=== PATIENT | male | born 1930 | race Caucasian/White ===

== ENCOUNTER 2018-08-22 13:19 | Emergency (ER) | payer OTHER ==
--- OUTSIDE RECORDS SUMMARY | 2018-08-22 13:22 | XMS REPORT | Clinical Summary ---
:[address] [facility] Address [address] [place] [address] Care Team Providers Name Role Phone Yulissa Primary Care Provider Allergies No Known Allergies Medications Not on file Active Problems Not on file Social History Tobacco Use Types Packs/Day Years Used Date Never Assessed Sex Assigned at Date Recorded Not on file Job Start Date Occupation Industry Not on file Not on file Not on file Travel History Travel Start Travel End No recent travel history available. Last Filed Vital Signs Not on file Plan of Treatment Not on file Results Not on fileafter 08/21/2017 Insurance Payer Benefit Plan / Subscriber ID Type Phone Address Group [employer] - MEDICARE AETNA MEDICARE O xxxxxxxx [phone] [address] [place] [id number]
--- OUTSIDE RECORDS SUMMARY | 2018-08-22 13:22 | XMS REPORT ---
:1930 Author Organization [facility] Address [address] [place] [address] Dr. Holguin [address] [place] [id number] Care Team Providers Name Role Phone SAMANTHA WILKS Unavailable Unavailable Problems This patient has no known problems. Allergies, Adverse Reactions, Alerts This patient has no known allergies or adverse reactions. Medications This patient has no known medications. Results Test Description Test Time Test Comments Text Results Atomic Results Result Comments COMPREHENSIVE METABOLIC PANEL 2017-03-16 13:12:00 Test Item Value Reference Range Comments TOTAL PROTEIN (BEAKER) (test 7.0 gm/dL 6.0-8.3 Specimen moderately hemolyzed rhwx=228) ALBUMIN (BEAKER) (test 4.0 g/dL 3.5-5.0 Specimen moderately hemolyzed mwfs=6972) ALKALINE PHOSPHATASE 54 U/L 40-150 (BEAKER) (test blon=029) BILIRUBIN TOTAL (BEAKER) 0.6 mg/dL 0.2-1.2 Specimen moderately hemolyzed (test voqq=133) SODIUM (BEAKER) (test 142 meq/L 136-145 zzzj=928) POTASSIUM (BEAKER) (test 4.5 meq/L 3.5-5.1 Specimen moderately hemolyzed uoab=553) CHLORIDE (BEAKER) (test 108 meq/L 98-107 gxlp=260) CO2 (BEAKER) (test fsvt=034) 27 meq/L 22-29 BLOOD UREA NITROGEN (BEAKER) 24 mg/dL 7-21 (test ilge=021) CREATININE (BEAKER) (test 0.98 mg/dL 0.57-1.25 Specimen moderately hemolyzed vdxe=740) GLUCOSE RANDOM (BEAKER) 86 mg/dL 70-105 (test tdwd=387) CALCIUM (BEAKER) (test 8.9 mg/dL 8.4-10.2 kxxb=572) AST (SGOT) (BEAKER) (test 23 U/L 5-34 Specimen moderately hemolyzed kgwx=454) ALT (SGPT) (BEAKER) (test 12 U/L 6-55 Specimen moderately ager=849) hemolyzed EGFR (BEAKER) (test mL/min/1.73 sq m INSUFFICIENT CLINICAL DATA TO fudi=7336) CALCULATE ESTIMATED GFR. B-TYPE NATRIURETIC FACTOR (BNP)2017-03-16 12:39:00 Test Item Value Reference Range Comments B-TYPE NATRIURETIC PEPTIDE (BEAKER) (test 476 pg/mL 0-100 mrzn=261) TROPONIN [id number] 12:39:00 Test Item Value Reference Range Comments TROPONIN I (BEAKER) (test vdls=817) 0.02 ng/mL 0.00-0.03 Troponin I (TnI) levels must be interpreted in the context of the presenting symptoms and the clinical findings. Elevated TnI levels indicate myocardial damage, but are not specific for ischemic heart disease. Elevated TnI levels are seen in patients with other cardiac conditions (including myocarditis and congestive heart failure), and slight TnI elevations occur in patients with other conditions, including sepsis, renal failure, acidosis, acute neurological disease, and persistent tachyarrhythmia.[id number] 12:29:00 Test Item Value Reference Range Comments MAGNESIUM (BEAKER) (test 2.4 mg/dL 1.6-2.6 Specimen moderately hemolyzed dsjv=777) RAD, CHEST, 1 VIEW, NON [id number] 12:23:00Reason for exam:->chest painShould this be performed at the bedside?->YesFINAL REPORT INDICATION: chest pain COMPARISON: None. TECHNIQUE: Chest radiograph, single view, portable technique. FINDINGS / IMPRESSION: No consolidation, pulmonary edema, or pleural effusion is demonstrated. Curvilinear lucencies of both hemithoraces represent skin folds. No pneumothorax. Moderate enlargement of the heart shadow and coarse calcification of the aortic arch noted. Osseous structures unremarkable. Signed: Tati Saez MDReport Verified Date/Time: 03/16/2017 12:23:55 Reading Location: [address] Consult Reading Room PT /[id number] 12:18:00 Test Item Value Reference Range Comments PROTIME (BEAKER) (test wgbx=580) 14.0 seconds 11.7-14.7 INR (BEAKER) (test kazj=473) 1.1 <=5.9 PARTIAL THROMBOPLASTIN TIME (BEAKER) (test 32.5 seconds 22.5-36.0 pisu=197) RECOMMENDED COUMADIN/WARFARIN INR THERAPY RANGESSTANDARD DOSE: 2.0 - 3.0 Includes: PROPHYLAXIS forvenous thrombosis, systemic embolization; TREATMENT for venous thrombosis and/or pulmonary embolus.HIGH RISK: Target INR is 2.5-3.5 for patients with mechanical heart valves.CBC W/PLT COUNT & AUTO [id number] 12:05:00 Test Item Value Reference Range Comments WHITE BLOOD CELL COUNT (BEAKER) (test qfyd=035) 4.6 K/ L 3.5-10.5 RED BLOOD CELL COUNT (BEAKER) (test odck=442) 3.32 M/ L 4.63-6.08 HEMOGLOBIN (BEAKER) (test vfkc=173) 10.6 GM/DL 13.7-17.5 HEMATOCRIT (BEAKER) (test ravu=183) 33.1 % 40.1-51.0 MEAN CORPUSCULAR VOLUME (BEAKER) (test skno=486) 99.7 fL 79.0-92.2 MEAN CORPUSCULAR HEMOGLOBIN (BEAKER) (test 31.9 pg 25.7-32.2 oylp=677) MEAN CORPUSCULAR HEMOGLOBIN CONC (BEAKER) (test 32.0 GM/DL 32.3-36.5 pfor=965) RED CELL DISTRIBUTION WIDTH (BEAKER) (test 11.9 % 11.6-14.4 ozsl=846) PLATELET COUNT (BEAKER) (test dbpe=143) 200 K/CU MM 150-450 MEAN PLATELET VOLUME (BEAKER) (test eduq=603) 9.6 fL 9.4-12.4 NUCLEATED RED BLOOD CELLS (BEAKER) (test 0 /100 WBC 0-0 kjru=465) NEUTROPHILS RELATIVE PERCENT (BEAKER) (test 61 % uasq=526) LYMPHOCYTES RELATIVE PERCENT (BEAKER) (test 26 % vkeu=549) MONOCYTES RELATIVE PERCENT (BEAKER) (test 9 % rgye=535) EOSINOPHILS RELATIVE PERCENT (BEAKER) (test 4 % gcmf=772) BASOPHILS RELATIVE PERCENT (BEAKER) (test 0 % dmfw=008) NEUTROPHILS ABSOLUTE COUNT (BEAKER) (test 2.78 K/ L 1.78-5.38 fiyf=548) LYMPHOCYTES ABSOLUTE COUNT (BEAKER) (test 1.21 K/ L 1.32-3.57 yoyo=067) MONOCYTES ABSOLUTE COUNT (BEAKER) (test 0.41 K/ L 0.30-0.82 fdxj=491) EOSINOPHILS ABSOLUTE COUNT (BEAKER) (test 0.17 K/ L 0.04-0.54 cpbl=241) BASOPHILS ABSOLUTE COUNT (BEAKER) (test 0.02 K/ L 0.01-0.08 tmco=139) IMMATURE GRANULOCYTES-RELATIVE PERCENT (BEAKER) 0 % 0-1 (test pohw=0722) CT, BRAIN, WITHOUT [id number] 11:37:00Reason for exam:-> HYPERTENSIONWhat is the patient's sedation requirement?->No SedationFINAL REPORT CT head without contrast. Comparisons: No Reason for exam: HYPERTENSIONHA with HTN. Discussion: Multiple axial CT images of the head are provided without contrast evaluated in brain and bone windows. Dose modulation, iterative reconstruction, and/or weight based adjustment of the mA/kV was utilized to reduce the radiation dose to as low as reasonably achievable. There is no CT evidence of intracranial hemorrhage, mass -effect, hydrocephalus, shift, or extra-axial collections. 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 The visualized dural sinus regions, orbital contents, paranasal sinuses, bones and surrounding soft tissues are unremarkable. Impressions: 1. No specific evidence of acute intracranial abnormality. Signed: Nelly Solorio Verified Date/Time: 11:37:58 Reading Location: [address] Reading Room
--- NOTE | 2018-08-22 13:50 | RAD REPORT ---
EXAM DESCRIPTION: CT - Head Brain Wo Cont - 08/22/2018 1:41 pm CLINICAL HISTORY: syncope;Syncope Headache, drowsiness, syncope COMPARISON: HEAD BRAIN W O CONTRAST dated 11/11/2006 TECHNIQUE: All CT scans are performed using dose optimization technique as appropriate and may inclu de automated exposure control or mA/KV adjustment according to patient size. FINDINGS: No intracranial hemorrhage, hydrocephalus or extra-axial fluid collection.Mild generalized brain atrophy is noted.No areas of brain edema or evidence of midline shift. The paranasal sinuses and mastoids are clear. The calvarium is intact. IMPRESSION: No acute intracranial abnormality.
--- NOTE | 2018-08-22 15:01 | EKG ---
Test Date: 2018-08-22 Test Time: 13:31:48 Flower Arranger: CHARLEEN MEASUREMENT RESULTS: Intervals: Rate: 51 MS: 264 QRSD: 98 QT: 466 QTc: 429 [place]: P: 77 MS: 264 QRS: -23 T: 47 INTERPRETIVE STATEMENTS: Sinus bradycardia with marked sinus arrhythmia with 1st degree AV block with occasional premature ventricular complexes Otherwise normal ECG Compared to ECG 12/28/2014 06:52:20 Ventricular premature complex(es) now present Atrial premature complex(es) no longer present Left-axis deviation no longer present ST (T wave) deviation no longer present Electronically Signed On 08-22-18 15:00:24 CDT by Ryan Rsut
[2018-08-22 15:16] LABS: Absolute Lymphocytes (CBC) 0.6 K/uL (0.7-4.9); Basophils % 0.2 % (0-1.3); Eosinophils % 0.7 % (0-4.4); Hematocrit 31.5 % (39.6-49.0); Lymphocytes % 8.3 % (15.3-44.8); MPV 8.2 fL (7.6-11.3); RBC Red Blood Cell Count 3.26 M/uL (4.33-5.43)
[2018-08-22 15:37] LABS: BUN Blood Urea Nitrogen 44 mg/dL (7-18); Bicarbonate 29 mmol/L (21-32); CKMB Creatine Kinase MB 1.1 ng/mL (0.3-3.6); Creatine Phosphokinase 77 U/L (39-308); Glucose Level 102 mg/dL (74-106); Magnesium 2.9 mg/dL (1.8-2.4); Potassium 3.7 mmol/L (3.5-5.1); Sodium Level 144 mmol/L (136-145); Troponin (Emerg Dept Use Only) < 0.02 ng/mL (0.0-0.045)
--- NOTE | 2018-08-22 16:58 | RAD REPORT ---
EXAM DESCRIPTION: CT - Abdomen Pelvis Wo Contrast - 08/22/2018 4:25 pm CLINICAL HISTORY: Low back pain, abdomen pain, syncope with fall COMPARISON: None. TECHNIQUE: Axial [address] imaging of the abdomen and pelvis was performed without IV contrast. No IV contrast was given because of allergy, abnormal renal function, patient refusal or physician re quest. Oral contrast was given. All CT scans are performed using dose optimization technique as appropriate and may include automated exposure control or mA/KV adjustment according to patient size. FINDINGS: No suspicious findings in the lung bases. No pericardial thickening or effusion. Liver size is normal. No focal liver lesions seen on noncontrast imaging. No splenic abnormality. Hassan creas is relatively atrophic. There are numerous calcifications throughout the pancreatic parenchyma presumed to be from prior infectious/ inflammatory process. Gallbladder is well filled but no wall th ickening or pericholecystic fluid. Gallstones can be occult on CT imaging. No hydronephrosis or suspicious renal mass. No significant adrenal finding. Isodense renal masses an d pyelonephritis cannot be excluded in the absence of IV contrast. The urinary bladder is without sig nificant finding. No gastric dilatation or wall thickening. No small bowel abnormality. Large amount of stool is presen t filling but not dilating the entire course of the colon. No focal, acute colon process identified. No free air, free fluid or inflammatory stranding. No mass or bulky lymphadenopathy. Small fat only r ight inguinal hernia. Dense arterial tree calcifications are present. Lower thoracic and lumbar degenerative changes are pr esent. No compression fracture or acute bone process seen. IMPRESSION: Large stool volume filling but not dilating the entire course of the colon. No acute foc al colon process seen. Gallbladder is distended but not dilated. No CT findings for an acute gallbladder process. Stones can be occult. Numerous pancreatic calcifications probably from remote pancreatitis. No active pancreatic process. Prominent bony degenerative change. No acute bone process seen. Full assessment is limited is the absence of IV contrast.
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
[2018-08-22 17:06] LABS: Urine Blood NEGATIVE (NEG); Urine Glucose NEGATIVE (NEG); Urine Protein NEGATIVE (NEG); Urine pH 5.5 (5.0-7.0)
[2018-08-26 16:18] VITALS: BP 120/69; TEMP 97.6; O2SAT 100
== END 2018-08-22 17:50 | disposition home or self-care (01) ==
LOC: ER 13:19
DX: R55 Syncope and collapse (principal); E86.0 Dehydration
CPT/HCPCS: 36415; 70450; 74176; 80048; 81003; 82550; 82553; 83735; 84484; 85025; 93005; 96360; 96361; 99285